=== PATIENT | male | born 1980 | race Two or more races ===

== ENCOUNTER 2018-07-14 19:47 | Emergency (ER) | payer OTHER ==
[~2018-07-14] VITALS: Ht 180.3 cm; Wt 88.0 kg
[2018-07-14 20:23] VITALS: BP 139/64
== END 2018-07-14 21:05 | disposition left against medical advice (07) ==
LOC: ER 19:47
DX: Z53.21 Procedure and treatment not carried out due to patient leaving prior to being seen by health care provider (principal)